=== PATIENT | female | born 1980 | race Caucasian/White ===

== ENCOUNTER 2016-11-02 21:25 | Emergency (ER) | payer BC, OTHER ==
[~2016-11-02] VITALS: Ht 165.1 cm; Wt 75.4 kg
[2016-11-02] MEDS ORDERED: SING10TA32 PO (21:56)
[2016-11-02] MEDS ORDERED: TOPR50TA PO (21:56)
[2016-11-02] MEDS ORDERED: FENO145T PO (21:56)
[2016-11-02] MEDS ORDERED: ASPI81TA85 PO (21:56)
[2016-11-02] MEDS ORDERED: SERO1TAB2 PO (21:56)
[2016-11-02] MEDS ORDERED: PLAV1TAB2 PO (21:56)
[2016-11-02] MEDS ORDERED: CRES10TA32 PO (21:56)
[2016-11-03] MEDS ORDERED: NS 1,000 ML IV ONE (00:45)
[2016-11-03] MEDS ORDERED: ONDANSETRON 4MG/2ML VIAL (J2405) IV ONE (00:45)
[2016-11-03] MEDS ORDERED: READI-CAT 2 PO ONE ×2 (01:15→02:00)
[2016-11-03] MEDS ORDERED: GASTROGRAFIN SOLUTION 30ML PO ONE (01:15)
[2016-11-03] MEDS: HYDROmorphone HCL 1 MG/ML SYRINGE (J1170) IV PRN ×6 (01:28→05:12)
[2016-11-03 01:43] LABS: BASO % 0.5 % (0.0-1.0); EOS # 0.2 K/mm3 (0.0-0.50); LARGE UNSTAINED CELL # 0.1 K/mm3 (0.0-0.4); LARGE UNSTAINED CELL % 1.7 % (0.0-4.0); LYMPH # 2.9 K/mm3 (1.5-4.5); LYMPH % 46.7 % (24.0-44.0); MEAN CORPUSCULAR HEMOGLOBIN 29.6 pg (27.0-33.0); MEAN CORPUSCULAR HGB CONC 34.7 g/dl (32.0-36.5); MEAN CORPUSCULAR VOLUME 85.2 fl (80.0-96.0); MONO # 0.3 K/mm3 (0.0-0.8); MONO % 5.7 % (0.0-5.0); NEUTROPHILS # 2.6 K/mm3 (1.8-7.7); NEUTROPHILS % 42.4 % (36.0-66.0); PLATELET COUNT, AUTOMATED 362 k/mm3 (150-450); RED CELL DISTRIBUTION WIDTH 13.1 % (11.5-14.5)
[2016-11-03] MEDS ORDERED: GASTROGRAFIN SOLUTION 30ML (Q9963) PO ONE (01:45)
[2016-11-03 02:03] LABS: ALBUMIN 4.2 GM/DL (3.2-5.2); ALBUMIN/GLOBULIN RATIO 1.35 (1.00-1.93); ALKALINE PHOSPHATASE 31 U/L (45-117); ALT/SGPT 44 U/L (12-78); ANION GAP 6 MEQ/L (8-16); AST/SGOT 25 U/L (15-37); BILIRUBIN,DIRECT 0.1 MG/DL (0.0-0.2); BILIRUBIN,TOTAL 0.3 MG/DL (0.2-1.0); BLOOD UREA NITROGEN 22 MG/DL (7-18); CALCIUM LEVEL 9.5 MG/DL (8.5-10.1); CARBON DIOXIDE LEVEL 29 MEQ/L (21-32); CHLORIDE LEVEL 107 MEQ/L (98-107); GLOMERULAR FILTRATION RATE > 60.0 (>60); GLUCOSE, FASTING 110 MG/DL (70-105); POTASSIUM SERUM 3.8 MEQ/L (3.5-5.1); SODIUM LEVEL 142 MEQ/L (136-145); TOTAL PROTEIN 7.3 GM/DL (6.4-8.2)
--- NOTE | 2016-11-03 03:20 | REPUSA ---
CT of the abdomen and pelvis without contrast Clinical statement: Pain. Technique: Multiple axial CT images were obtained from the base of the lungs to the floor of the pelv is utilizing 5 mm axial slices without administration of contrast. Coronal and sagittal reconstructio ns were also obtained. Comparison: None. Findings: Chest: The visualized lung bases are clear. Abdomen: The kidneys are normal in size bilaterally. There is no evidence of hydronephrosis or nephro lithiasis. The liver, spleen, pancreas, and adrenal glands are unremarkable. The aorta demonstrates n ormal caliber and contour. There is no abdominal lymphadenopathy or ascites. Pelvis: The bowel is unremarkable, with no obstructive or inflammatory changes. The urinary bladder i s within normal limits. There is no pelvic lymphadenopathy or ascites. The other pelvic structures ap pear unremarkable. Bones: There are no suspicious osseous abnormalities seen. Impression: Unremarkable CT examination of the abdomen and pelvis.
[2016-11-03] MEDS ORDERED: NORCOTAB PO (05:03)
[2016-11-03] MEDS ORDERED: DOXY100C37 PO (05:03)
[2016-11-03] MEDS ORDERED: cefTRIAXone SOD 1 GM in D5W MINI-BAG PLUS 50 ML IV ONE (05:15)
[2016-11-03] MEDS ORDERED: DOXYCYCLINE HYCLATE 100 MG TAB PO ONE (05:15)
[2016-11-03] MEDS ORDERED: NORCO 5/325MG TABLET (BULK FOR ED) PO ONE (05:15)
[2016-11-03 05:30] VITALS: BP 132/78
--- NOTE | 2016-11-03 08:26 | ECGEPIP ---
Stationary ECG Study [facility] - ED Test Date: 2016-11-03 Pat Name: BEBE MARTINEZ Department: Room: - Gender: F [employer]board [employer]boat [employer]: karlene : 1980 Requested By: BRY Sanford Order Number: [id number] Reading MD: Rina Bland Measurements Intervals [place] Rate: 78 P: 23 MA: 226 QRS: 43 QRSD: 94 T: 29 QT: 377 QTc: 431 Interpretive Statements SINUS RHYTHM WITH FIRST DEGREE AV BLOCK NO PRIOR FOR COMPARISON Electronically Signed On 11-03-2016 8:25:58 EDT by Rina Bland
== END 2016-11-03 05:31 | disposition home or self-care (01) ==
LOC: M ED 21:25
DX: N73.0 Acute parametritis and pelvic cellulitis (principal)

== ENCOUNTER 2019-10-29 15:31 | Emergency (ER) | payer OTHER ==
[~2019-10-29] VITALS: Ht 165.1 cm; Wt 77.3 kg
[~2019-10-29 15:31] MED LIST: ASPI81TA85 PO; CRES10TA PO; DOXY100C37 PO; FENO145T7 PO; HYDR-3715 PO; PLAV1TAB2 PO; SERO1TAB2 PO; SING10TA32 PO; TOPR50TA PO
[2019-10-29] MEDS ORDERED: EZET10TA21 PO (15:52)
[2019-10-29] MEDS ORDERED: TIZA4CAP PO (15:52)
[2019-10-29] MEDS ORDERED: PANT40TA3 PO (15:52)
[2019-10-29] MEDS ORDERED: NITR0.4S14 SL (15:52)
[2019-10-29] MEDS ORDERED: ESTR1TAB PO (15:52)
[2019-10-29] MEDS ORDERED: FURO20TA2 PO (15:52)
[2019-10-29] MEDS ORDERED: MIRT1TAB PO (15:52)
[2019-10-29] MEDS ORDERED: ISOS120T7 PO (15:52)
[2019-10-29] MEDS ORDERED: NORV5TAB PO (15:52)
[2019-10-29] MEDS ORDERED: VENL150C43 PO (15:52)
[2019-10-29] MEDS ORDERED: ACETAMINOPHEN 325 MG TAB PO ONE (16:30)
--- NOTE | 2019-10-29 17:49 | REP ---
Clinical: Trauma. Fall. Technique: Frontal view of the pelvis with neutral and frog lateral views of the left hip. Findings: Prior left hip replacement noted. Osseous structures and joint spaces are intact and normal. No acute fracture dislocation. No evidence for healed injury. No significant degenerative or congenital abnormalities are appreciated. Surrounding soft tissues are unremarkable. Impression: Status post left hip replacement. No acute fracture or dislocation. Electronically Signed by Toño Soriano MD 10/29/2019 05:41 P
--- NOTE | 2019-10-29 17:53 | REP ---
Clinical: Trauma. Technique: Frontal view of the chest with four views of the left hemithorax. Findings: Frontal view of the chest demonstrates no acute cardiopulmonary process. Multiple views of the left hemithorax demonstrates no obvious acute rib fracture or pathology. Impression: Normal left rib series Electronically Signed by Toño Soriano MD 10/29/2019 05:45 P
--- NOTE | 2019-10-29 17:55 | REP ---
Clinical: Trauma. Technique: AP, lateral, bilateral oblique and sunrise views left knee . Findings: The osseous structures and joint spaces are intact and normal. There is no evidence for acute fracture or dislocation. No joint effusion is appreciated. Surrounding soft tissues are unremarkable. No subcutaneous emphysema or radiodense foreign body. Impression: Normal age-appropriate left knee examination. No acute fracture or dislocation. Electronically Signed by Toño Soriano MD 10/29/2019 05:46 P
[2019-10-29 18:18] VITALS: BP 220/120
[2019-10-29] MEDS ORDERED: METOPROLOL SUCC (TopROL XL) 50MG **XL** TAB PO ONE (18:30)
[2019-10-29 18:32] VITALS: BP 220/120
== END 2019-10-29 18:52 | disposition home or self-care (01) ==
LOC: M ED 15:31
DX: M25.552 Pain in left hip (principal); M25.562 Pain in left knee; W18.2XXA Fall in (into) shower or empty bathtub, initial encounter; Y99.8 Other external cause status; Y92.89 Other specified places as the place of occurrence of the external cause; Y93.89 Activity, other specified